=== PATIENT | male | born 1950 | race African-American/Black ===

== ENCOUNTER → 2017-10-29 | Outpatient (CLI) | payer BC ==
--- NOTE | 2017-10-29 10:44 | RAD ---
MR#: [id number] Date of Study: 10/29/2017 Ordering Physician: ROSALINDA FERNANDEZ, Referring Physician: Vicente MORE: Jennifer Sheffield RDMS RVT APPROVED REPORT Patient Location: OUT-PATIENT Indications Grayscale images of the abdominal aorta demonstrate mild diffuse atherosclerotic plaque. Spectral wav eforms and color Doppler do not reveal any significant obstruction to flow. Grayscale images do not d emonstrate any evidence of aneurysm or dissection. Overall the caliber of the abdominal aorta is kelsey sly within normal limits. Risk Factors PAD Duplex Results A/PTransverseLongitudinal Proximal Aorta 2.3cm Mid Aorta 1.7cm Distal Aorta 1.6cm Doppler VelocityWaveform Proximal Aorta 73.0 cm/secTriphasic Aorta Mid. 68.0 cm/secTriphasic Distal Aorta 78.0 cm/secTriphasic Critical Notification Critical Value: No <Conclusion> No evidence of AAA. Signed by : Rosalinda Fernandez, Electronically Approved : 10/29/2017 10:43:28
--- NOTE | 2017-10-29 11:06 | RAD ---
MR#: [id number] Date of Study: 10/29/2017 Ordering Physician: ROSALINDA FERNANDEZ, Referring Physician: ROSALINDA FERNANDEZ, Tech: Jennifer Sheffield RDMS RVT APPROVED REPORT Patient Location: OUT-PATIENT Indications PAD Grayscale images of the right lower extremity arterial vessels reveal mild diffuse atherosclerotic pl aque. The SFA is occluded. The proximal graft anastomosis appears widely patent without any significa nt turbulent flow. The distal graft anastomosis is also widely patent. Spectral waveforms in the common femoral and bypass graft R biphasic in nature. There is three-vessel runoff below the knee with slightly diminished flows in the peroneal and anterior tibial artery sugg estive of moderate diffuse disease. No significant high-grade flow-limiting stenosis is identified. On the left there are mostly biphasic waveforms above the knee. Spectral waveforms demonstrate mild d iffuse catheters carotid plaque in the SFA and below-knee vessels. Suspect approximately 50% stenosis involving the left SFA with a peak systolic velocity of 155 cm/s. Again there is three-vessel runoff below the knee with moderate to severely diminished flow in a monophasic wave pattern in the anterio r tibial artery suggestive of some near occlusion. The posterior tibial and peroneal vessels have mon ophasic waveforms although they appear to be patent. VELOCITY AND DOPPLER WAVEFORM ANALYSIS RIGHT cm/secWaveformSeverity LEFT cm/secWaveform Severity pCFA 98.0BiphasicpCFA 90.0Biphasic Prof Fem Art. 47.0BiphasicProf Fem Art. 84.0Biphasic Fem Art Prox. 31.0BiphasicFem Art Prox. 126.0Biphasic Fem Art Mid. 0.0OccludedFem Art Mid. 155.0Biphasic Fem Art Dist. 0.0OccludedFem Art Dist. 67.0Biphasic Pop Art(Fossa) 72.0BiphasicPop Art(AK) 47.0Biphasic FELTMAKER AND WEIGHER Prox. 60.0BiphasicPTA Prox. 42.0Biphasic Per Art Mid. 44.0BiphasicPer Art Mid. 51.0Biphasic CHRISTIAN Prox. 37.0BiphasicATA Prox. 26.0Biphasic DPA 75BiphasicDPA 38Biphasic BYPASS GRAFT ANALYSIS RIGHT cm/secWaveform SeverityLEFT cm/secWaveformSeverity Proximal 104BiphasicProximal Mid 79.0BiphasicMid Distal 87.0BiphasicDistal Critical Notification Critical Value: No <Conclusion> 1. Patent RSFA bypass graft. 2. 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 Signed by : Rosalinda Fernandez, Electronically Approved : 10/29/2017 11:05:47
== END | disposition home or self-care (01) ==
LOC: US 08:46
PROVIDERS: ATTEND Internal Medicine Cardiovascular Disease
DX: I73.9 Peripheral vascular disease, unspecified (principal)
CPT/HCPCS: 76770; 93925

== ENCOUNTER 2018-09-13 14:50 | Emergency (ER) | payer BC ==
[~2018-09-13] VITALS: Ht 191.8 cm; Wt 106.1 kg
[2018-09-13] MEDS ORDERED: CLINDAMYCIN HCL 150 MG CAPSULE PO ONE (15:45)
[2018-09-13] MEDS ORDERED: DEXAMETHASONE 4 MG TABLET PO ONE (15:45)
--- NOTE | 2018-09-13 17:03 | RAD ---
Left lower extremity venous ultrasound, 09/13/2018 : History: Left leg swelling Duplex evaluation including grayscale, color flow and spectral Doppler analysis was performed. The femoral and popliteal veins show no filling defects to suggest DVT. The visualized calf veins are unremarkable. IMPRESSION: There is no sonographic evidence of deep vein thrombosis in the left lower extremity Electronically signed by: Khari Dao MD (09/13/2018 5:00 PM) [facility]
[2018-09-13] MEDS ORDERED: PRED20TA PO (17:08)
[2018-09-13] MEDS ORDERED: CLIN300C8 PO (17:08)
--- NOTE | 2018-09-13 17:08 | PHYS DOC ---
Past History Past Medical History: CAD, High Cholesterol, Hypertension Additional Past Medical Histor: PAD Past Surgical History: Other Additional Past Surgical Histo: Dental implants, right leg vascular surgery, cardiac stents Smoking: Cigarettes, Less than 1pk/day Alcohol Use: None Drug Use: None Adult General Chief Complaint Chief Complaint: LOWER EXT PAIN HPI HPI 68-year-old male presents with report of leg swelling to left leg which started yesterday. Patient reports has noticed he developed a "rash" tube his bilateral arms. Patient was seen by his family physician who thought it was secondary to allergen exposure. Patient was prescribed Zyrtec at that time with interval improvement of symptoms. Patient reports now similar rash has spread to his legs. Denies any fever or chills. Denies known sick contacts. Review of Systems Review of Systems Constitutional: Denies fever or chills [] Eyes: Denies change in visual acuity, redness, or eye pain [] HENT: Denies nasal congestion or sore throat [] Respiratory: Denies cough or shortness of breath [] Cardiovascular: Denies chest pain, pleuritic pain, or palpitations GI: Denies abdominal pain, nausea, vomiting, or diarrhea [] : Denies dysuria or hematuria [] Musculoskeletal: Denies back pain or joint pain; reports swelling of left lower leg Integument: Reports pruritic rash and skin lesions [] Neurologic: Denies headache, focal weakness or sensory changes [] Complete systems were reviewed and found to be within normal limits, except as documented in this note. Current Medications Current Medications Current Medications Medications (Trade) Dose Ordered Sig/Sonam Start Time Stop Time Status Last Admin Dose Admin Clindamycin HCl (Cleocin) 300 mg 1X ONCE 09/13/18 15:45 09/13/18 15:46 DC 09/13/18 15:51 300 MG Dexamethasone (Decadron) 10 mg 1X ONCE 09/13/18 15:45 09/13/18 15:46 DC 09/13/18 15:51 10 MG Allergies Allergies Allergies Uncoded Allergies Type Severity Reaction Last Updated Verified contrast dye Allergy Unknown 09/13/18 Physical Exam Physical Exam Constitutional: Well developed, well nourished, no acute distress, non-toxic appearance. [] HENT: Normocephalic, atraumatic Eyes: Conjunctiva normal, no discharge. [] Neck: Normal range of motion, no tenderness, supple Cardiovascular: Heart rate regular rhythm, no murmur [] Lungs & Thorax: Bilateral breath sounds clear to auscultation []] Skin: Warm, dry, no erythema, pruritic rash noted to bilateral lower extremities, small excoriations noted, no significant warmth appreciated, some surrounding erythema concerning for cellulitis Extremities: Mild left lower leg tenderness, ROM intact, 1+ edema to left lower leg. [] Neurologic: Alert and oriented X 3, normal motor function, normal sensory function, no focal deficits noted. [] Psychologic: Affect normal, judgement normal, mood normal. [] Current Patient Data Vital Signs Vital Signs Date Time Temp Pulse Resp B/P (MAP) Pulse Ox O2 Delivery O2 Flow Rate FiO2 09/13/18 14:50 98.1 68 18 98 Room Air EKG EKG [] Radiology/Procedures Radiology/Procedures PROCEDURE: VENOUS LOWER EXTREMITY LEFT Left lower extremity venous ultrasound, 09/13/2018 : History: Left leg swelling Duplex evaluation including grayscale, color flow and spectral Doppler analysis was performed. The femoral and popliteal veins show no filling defects to suggest DVT. The visualized calf veins are unremarkable. IMPRESSION: There is no sonographic evidence of deep vein thrombosis in the left lower extremity Electronically signed by: Khari Dao MD (09/13/2018 5:00 PM) [facility] Course & Med Decision Making Course & Med Decision Making Pertinent Imaging studies reviewed. (See chart for details) Patient presents with report of left lower leg swelling with associated rash. Patient has had rash previously on bilateral upper extremities which was treated with steroids. Patient with bilateral lower extremity rash and some erythema. Concern for cellulitis. Empiric antibiotics given. Denies any fever or chills. Denies known trauma. Venous Doppler negative for acute DVT. Symptomatic treatment provided with interval improvement of symptoms. Patient stable for discharge with outpatient follow-up with PCP. Discussed findings and plan with patient, who acknowledges understanding and agreement. Dragon Disclaimer Dragon Disclaimer This electronic medical record was generated, in whole or in part, using a voice recognition dictation system. Departure Departure: Impression: Primary Impression: Cellulitis Additional Impression: Pruritic dermatitis Disposition: 01 HOME, SELF-CARE Condition: STABLE (f) Referrals: RYAN LITTLE MD (PCP) Patient Instructions: Cellulitis, Ipti-wz-Efbt, Rash, Nyxz-ra-Ymkd Scripts Prednisone (PREDNISONE) 20 Mg Tablet 2 TAB PO DAILY for Pruritic Rash, #8 TAB Start this medication tomorrow, 09/13/18 Prov: WICHO SIMMONS DO 09/13/18 Clindamycin Hcl (CLINDAMYCIN HCL) 300 Mg Capsule 1 CAP PO TID for infection, #7 CAP Prov: WICHO SIMMONS DO 09/13/18 Problem Qualifiers Primary Impression: Cellulitis Site of cellulitis: extremity Site of cellulitis of extremity: lower extremity Laterality: left Qualified Codes: L03.116 - Cellulitis of left lower limb WICHO SIMMONS DO September 13, 2018 17:08
[2018-09-13 17:30] VITALS: BP 137/83
== END 2018-09-13 17:30 | disposition home or self-care (01) ==
LOC: ER 14:50
DX: L03.116 Cellulitis of left lower limb (principal); L30.8 Other specified dermatitis
CPT/HCPCS: 93971; 99284; J8540

== ENCOUNTER → 2018-11-11 | Outpatient (CLI) | payer BC ==
[~2018-11-11] MED LIST: CLIN300C8 PO; PRED20TA PO
--- NOTE | 2018-11-11 12:53 | RAD ---
MR#: [id number] Date of Study: 11/11/2018 Ordering Physician: ROSALINDA OTERO, Referring Physician: ROSALINDA OTERO, Tech: Cinthia Savage RVT, [facility] APPROVED REPORT Patient Location: OUT-PATIENT Indications PAD Grayscale images of the right lower ext arterial vessels reveals moderate diffuse plaque. The right S FA is subtotally occluded at the distal segment. The right femoropopliteal bypass graft appears to be patent. There are mostly biphasic waveforms throughout the right lower extremity. There is three-ves armida runoff below the knee. Similarly grayscale images of the left lower extremity arterial vessels demonstrate mild to moderate diffuse plaque. No significant high-grade focal stenosis is 5. There is three-vessel runoff below the knee. There are biphasic waveforms throughout the arterial course. Risk Factors History of Lower Extremity PAD: Hypertension Smoking Surgery/Intervention Bypass Graft 1 : VELOCITY AND DOPPLER WAVEFORM ANALYSIS RIGHT cm/secWaveformSeverity LEFT cm/secWaveform Severity pCFA 150.4BiphasicpCFA 141.0Biphasic Prof Fem Art. 60.2BiphasicProf Fem Art. 69.4Biphasic Fem Art Prox. 42.6BiphasicFem Art Prox. 115.7Biphasic Fem Art Mid. 37.0BiphasicFem Art Mid. 112.4Biphasic Fem Art Dist. Fem Art Dist. 57.8Biphasic Pop Art(AK) 73.3BiphasicPop Art(AK) 45.7Biphasic Pop Art(BK) Pop Art(BK) CELLULAR BIOLOGIST Prox. 61.1BiphasicPTA Prox. 73.5Biphasic CELLULAR BIOLOGIST Dist. 79.1BiphasicPTA Dist. 83.6Biphasic Per Art Mid. 108.2BiphasicPer Art Mid. 46.3Biphasic CHRISTIAN Prox. 60.7BiphasicATA Prox. 51.5Biphasic DPA 44BiphasicDPA 31Biphasic BYPASS GRAFT ANALYSIS RIGHT cm/secWaveform SeverityLEFT cm/secWaveformSeverity Proximal 74BiphasicProximal Mid 82.0BiphasicMid Distal 74.0BiphasicDistal Critical Notification Critical Value: No <Conclusion> 1. Patent femoropopliteal bypass graft on the right 2. No significant disease on the left. 3. Bilateral three-vessel runoff below the knee. Signed by : Rosalinda Otero, Electronically Approved : 11/11/2018 12:53:03
== END | disposition home or self-care (01) ==
LOC: US 10:23
PROVIDERS: ATTEND Internal Medicine Cardiovascular Disease
DX: I70.203 Unspecified atherosclerosis of native arteries of extremities, bilateral legs (principal); I10 Essential (primary) hypertension; F17.200 Nicotine dependence, unspecified, uncomplicated
CPT/HCPCS: 93925

== ENCOUNTER → 2020-01-27 | Outpatient (CLI) | payer BC, MEDICARE ==
--- NOTE | 2020-01-27 11:13 | RAD ---
EXAM: Carotid Doppler sonogram. HISTORY: Peripheral artery disease. Atherosclerosis. TECHNIQUE: Childs scale and color Doppler sonographic evaluation of the neck with spectral waveform analysis was performed and static images are submitted for review. FINDINGS: There is mild atherosclerotic plaque involving the bilateral internal carotid arteries and left external carotid artery. The peak systolic velocity within the right common carotid artery is 118 cm/sec. The peak systolic velocity within the right internal carotid artery is 88 cm/sec and the end diastolic velocity within the right internal carotid artery is 29 cm/sec. The peak systolic velocity within the left common carotid artery is 151 cm/sec. The peak systolic velocity within the left internal carotid artery is 77 cm/sec and the end diastolic velocity within the left internal carotid artery is 18 cm/sec. There is normal antegrade flow within both vertebral arteries. IMPRESSION: No Doppler evidence of greater than 50 percent stenosis involving the internal carotid arteries. PQRS Compliance Statement - Stenosis calculations for CT, MR and conventional angiography are based upon measurement of the distal ICA diameter in accordance with the NASCET methodology. Stenosis calculations for carotid ultrasound studies are derived from validated velocity criteria which are known to correlate with the NASCET methodology. Electronically signed by: Tracy Owens MD (01/27/2020 11:10 AM) [id number]
--- NOTE | 2020-01-27 12:01 | RAD ---
MR#: [id number] Date of Study: 01/27/2020 Ordering Physician: ROSALINDA FERNANDEZ, Referring Physician: ROSALINDA FERNANDEZ, Tech: Gabbi Espinoza RDMS, [facility] APPROVED REPORT Patient Location: OUT-PATIENT Indications PAD Grayscale images of bilateral lower extremity arterial vessels demonstrate mild to moderate diffuse a therosclerosis. On the right side the SFA is subtotally occluded at the level of the mid to distal s egment. There is a patent CATERPILLAR DRIVER to popliteal bypass graft. There are biphasic waveforms in the common femoral artery, popliteal artery, below-knee vessels. No significant velocity acceleration is noted . The bypass graft appears to be patent with biphasic waveforms. On the left side no significant obstruction is noted with three-vessel runoff below the knee. There are biphasic waveforms throughout. Surgery/Intervention Bypass Graft 1 : VELOCITY AND DOPPLER WAVEFORM ANALYSIS RIGHT cm/secWaveformSeverity LEFT cm/secWaveform Severity dCFA 135.0BiphasicdCFA 61.0Biphasic Prof Fem Art. 102.0BiphasicProf Fem Art. 129.0Biphasic Fem Art Prox. 45.0BiphasicFem Art Prox. 89.0Biphasic Fem Art Mid. 45.0BiphasicFem Art Mid. 105.0Biphasic Fem Art Dist. -28.0BiphasicFem Art Dist. 103.0Biphasic Pop Art(Fossa) 73.0BiphasicPop Art(AK) 41.0Biphasic [employer] WEBSPHERE PORTAL DEVELOPER Prox. 83.0PTA Prox. 71.0Biphasic [employer] WEBSPHERE PORTAL DEVELOPER Dist. 71.0PTA Dist. 46.0Biphasic Per Art Prox. Per Art Prox. Per Art Mid. 36.0BiphasicPer Art Mid. 54.0Biphasic CHRISTIAN Prox. CHRISTIAN Prox. CHRISTIAN Prox. 50.0BiphasicATA Prox. 49.0Biphasic DPA 57DPA 49Biphasic BYPASS GRAFT ANALYSIS RIGHT cm/secWaveform SeverityLEFT cm/secWaveformSeverity Prox. Anastomosis 27.0BiphasicProx. Anastomosis Proximal 88BiphasicProximal Mid 83.0BiphasicMid Distal 87.0BiphasicDistal Dist. Anastomosis 82.0BiphasicDist. Anastomosis Critical Notification Critical Value: No <Conclusion> 1. Right-sided SFA occlusion with patent right CATERPILLAR DRIVER to distal SFA bypass. 2. Bilateral three-vessel runoff with biphasic waveforms Signed by : Rosalinda Fernandez, Electronically Approved : 01/27/2020 12:01:22
--- NOTE | 2020-01-27 12:02 | RAD ---
MR#: [id number] Date of Study: 01/27/2020 Ordering Physician: ROSALINDA FERNANDEZ, Referring Physician: ROSALINDA FERNANDEZ, Tech: Gabbi Espinoza RDMS, [facility] APPROVED REPORT Patient Location: OUT-PATIENT Exam Type: Ankle to Brachial Index Indications PAD Normal bilateral ankle-brachial indices. Risk Factors History of PAD: Bilaterally Surgery/Intervention Bypass Graft 1 : Pressures/Indices RightABI LeftABI Brachial 122mmHgBrachial 124mmHg Ankle(PT) 118mmHgAnkle(PT) 128mmHg Critical Notification Critical Value: No <Conclusion> 1. Normal bilateral ankle-brachial indices. Signed by : Rosalinda Fernandez, Electronically Approved : 01/27/2020 12:01:56
== END | disposition home or self-care (01) ==
LOC: US 08:02
PROVIDERS: ATTEND Internal Medicine Cardiovascular Disease
DX: I65.23 Occlusion and stenosis of bilateral carotid arteries (principal); I70.201 Unspecified atherosclerosis of native arteries of extremities, right leg
CPT/HCPCS: 93880; 93922; 93925

== ENCOUNTER → 2020-02-24 | Outpatient (CLI) | payer BC ==
--- NOTE | 2020-02-24 17:39 | CARD ---
MR#: [id number] Date of Study: 02/24/2020 Ordering Physician: ROSALINDA FERNANDEZ, Referring Physician: ROSALINDA FERNANDEZ, Tech: Shirin Velez USHA APPROVED REPORT EXAM: Two-dimensional and M-mode echocardiogram with Doppler and color Doppler. Other Information Quality : Fair INDICATION Cardiac Disease: CAD RISK FACTORS Smoking 2D DIMENSIONS Left Atrium(2D)2.8 (1.6-4.0cm)IVSd1.2 (0.7-1.1cm) Aortic Root(2D)3.2 (2.0-3.7cm)LVDd4.3 (3.9-5.9cm) LVOT Diameter2.0 (1.8-2.4cm)PWd1.2 (0.7-1.1cm) LVDs3.2 (2.5-4.0cm)FS (%) 25.0 % SV41.1 ml Aortic Valve AoV Peak Simone.121.6cm/sAoV VTI19.9cm AO Peak GR.5.9mmHgAO Mean GR.4mmHg BHARGAVI (VTI)2.55cm2 Mitral Valve MV E Wwnomhxf32.3cm/sMV DECEL XMDD372st MV A Pkrbitje51.4cm/sE/A Ratio0.9 Tricuspid Valve TR P. Czpypdlt049ly/sRAP LTTNIFLI6yfJm TR Peak Gr.35pkWoZRCE53wxPw LEFT VENTRICLE The left ventricle is normal size. There is mild concentric left ventricular hypertrophy. Left ventri isabel systolic function is normal. The Ejection Fraction is 50-55%. There is normal LV segmental wall m otion. Transmitral Doppler flow pattern is Grade I-abnormal relaxation pattern. RIGHT VENTRICLE The right ventricle is normal size. The right ventricular systolic function is normal. ATRIA The left atrium size is normal. The right atrium size is normal. The interatrial septum is intact wit h no evidence for an atrial septal defect or patent foramen ovale as noted on 2-D or Doppler imaging. AORTIC VALVE The aortic valve is mildly thickened but opens well. Doppler and Color Flow revealed no significant a ortic regurgitation. There is no significant aortic valvular stenosis. MITRAL VALVE The mitral valve is normal in structure and function. There is no evidence of mitral valve prolapse. There is no mitral valve stenosis. Doppler and Color-flow revealed trace mitral regurgitation. TRICUSPID VALVE The tricuspid valve is normal in structure and function. Doppler and Color Flow revealed trace tricus pid regurgitation. The PA pressure was estimated at 31 mmHg. There is no tricuspid valve stenosis. PULMONIC VALVE The pulmonic valve is not well visualized. Doppler and Color Flow revealed trace pulmonic valvular re gurgitation. There is no pulmonic valvular stenosis. GREAT VESSELS The aortic root is normal in size. The ascending aorta is mildly dilated at 3.6 cm. The IVC is normal in size and collapses >50% with inspiration. PERICARDIAL EFFUSION There is no evidence of significant pericardial effusion. Critical Notification Critical Value: No <Conclusion> The left ventricle is normal size. Left ventricle systolic function is normal. The Ejection Fraction is 50-55%. There is mild concentric left ventricular hypertrophy. Doppler and Color Flow revealed no significant aortic regurgitation. There is no significant aortic valvular stenosis. Doppler and Color-flow revealed trace mitral regurgitation. Doppler and Color Flow revealed trace tricuspid regurgitation. The PA pressure was estimated at 31 mmHg. The ascending aorta is mildly dilated at 3.6 cm. Signed by : Manish Cowart MD Electronically Approved : 02/24/2020 17:39:01
== END ==
LOC: ECHO 07:42
PROVIDERS: ATTEND Internal Medicine Cardiovascular Disease
DX: I25.10 Atherosclerotic heart disease of native coronary artery without angina pectoris (principal)
CPT/HCPCS: 93306

== ENCOUNTER → 2020-12-22 | Outpatient (CLI) | payer BC ==
[~2020-12-22] MED LIST changes: -CLIN300C8 PO; +CLIN300C9 PO
--- NOTE | 2020-12-22 16:51 | RAD ---
EXAM: RENAL/RETROPERITONAL ULTRASOUND. HISTORY: Chronic renal disease. COMPARISON: None. FINDINGS: Ultrasound of the kidneys, bladder and retroperitoneum was performed. The right kidney measures 9.8 cm. Cortical thickness and echogenicity are preserved. There is no hydr onephrosis. The left kidney measures 10.6 cm. Cortical thickness and echogenicity are preserved. There is no hydr onephrosis. A benign cyst is suspected in the interpolar region measuring 1.6 x 1.4 cm. The bladder is decompressed but demonstrates wall thickening. There was an 11 mL post void residual v olume. The abdominal aorta and inferior vena cava are grossly patent and normal in caliber. IMPRESSION: 1. A 1.6 cm mass in the left renal interpolar region is likely a cyst. Sonographic follow-up is ze christian in 6 months if long-term stability is not already known. 2. Bladder wall thickening. Correlate with urinalysis. 11 mL post void residual volume. Electronically signed by: Leidy Aleman MD (12/22/2020 4:49 PM) [id number]
== END ==
LOC: US 10:46
PROVIDERS: ATTEND Family Medicine
DX: N18.31 Chronic kidney disease, stage 3a (principal); N28.89 Other specified disorders of kidney and ureter; N32.89 Other specified disorders of bladder; R39.198 Other difficulties with micturition
CPT/HCPCS: 76770

== ENCOUNTER → 2021-01-25 | Outpatient (CLI) | payer BC ==
--- NOTE | 2021-01-25 15:42 | CARD ---
MR#: [id number] Date of Study: 01/25/2021 Ordering Physician: ROSALINDA OTERO, Referring Physician: ROSALINDA OTERO, Tech: Lilliam Ojeda, [facility] APPROVED REPORT EXAM: Two-dimensional and M-mode echocardiogram with Doppler and color Doppler. Other Information Quality : AverageHR: 76bpm Technically limited study due to body habitus. INDICATION Cardiac Disease: CAD RISK FACTORS Hypertension Hyperlipidemia Smoking 2D DIMENSIONS Left Atrium(2D)3.3 (1.6-4.0cm)IVSd1.2 (0.7-1.1cm) Aortic Root(2D)3.6 (2.0-3.7cm)LVDd4.9 (3.9-5.9cm) LVOT Diameter2.1 (1.8-2.4cm)PWd1.2 (0.7-1.1cm) LVDs3.2 (2.5-4.0cm)FS (%) 35.0 % SV72.8 mlLVEF(%)64.1 (>50%) Aortic Valve AoV Peak Simone.143.6cm/sAoV VTI29.2cm AO Peak GR.8.2mmHgLVOT Peak Simone.120.4cm/s LVOT VTI 21.74cmAO Mean GR.4mmHg BHARGAVI (VMAX)2.91fa3TVT (VTI)2.58cm2 Mitral Valve MV E Tfpemict83.9cm/sMV E Peak Gr.4mmHg MV DECEL IIAT948kmME A Yidytoyk94.6cm/s MV E Mean Gr.1mmHgE/A Ratio0.7 Pulmonary Valve PV Peak Xfbebuti96.0cm/sPV Peak Grad.4mmHg Tricuspid Valve TR P. Hdifljzk505qk/sRAP YSBGGCID1ezNd TR Peak Gr.48hwNrVQBE76rgZd Pulmonary Vein S1 Dtkwvhqn94.2cm/sD2 Hbfngjwi06.3cm/s LEFT VENTRICLE The left ventricle is normal size. There is mild concentric left ventricular hypertrophy. The left ve ntricular systolic function is normal and the ejection fraction is within normal range. The Ejection Fraction is 50-55%. There is normal LV segmental wall motion. Transmitral Doppler flow pattern is Gra de I-abnormal relaxation pattern. RIGHT VENTRICLE The right ventricle is borderline dilated. The right ventricle is borderline hypertrophied. The right ventricular systolic function is normal. ATRIA The left atrium size is normal. The right atrium size is normal. The interatrial septum is intact wit h no evidence for an atrial septal defect or patent foramen ovale as noted on 2-D or Doppler imaging. AORTIC VALVE The aortic valve is not well visualized. Doppler and Color Flow revealed no significant aortic regurg itation. There is no significant aortic valvular stenosis. Calculated aortic valve area is 3.0 cm2 wi th maximum pressure gradient of 8 mmHg and mean pressure gradient of 4 mmHg. MITRAL VALVE The mitral valve is normal in structure and function. There is no evidence of mitral valve prolapse. There is no mitral valve stenosis. Doppler and Color-flow revealed trace mitral regurgitation. TRICUSPID VALVE The tricuspid valve is normal in structure and function. Doppler and Color Flow revealed trace tricus pid regurgitation with an estimated PAP of 30 mmHg. There is no tricuspid valve stenosis. PULMONIC VALVE The pulmonic valve is not well visualized. Doppler and Color Flow revealed trace pulmonic valvular re gurgitation. There is no pulmonic valvular stenosis. GREAT VESSELS The aortic root is normal in size. The IVC is normal in size and collapses >50% with inspiration. PERICARDIAL EFFUSION There is no evidence of significant pericardial effusion. Critical Notification Critical Value: No <Conclusion> The left ventricular systolic function is normal and the ejection fraction is within normal range. Th e Ejection Fraction is 50-55%. There is normal LV segmental wall motion. Signed by : Rosalinda Otero, Electronically Approved : 01/25/2021 15:41:23
--- NOTE | 2021-01-25 15:44 | RAD ---
MR#: [id number] Date of Study: 01/25/2021 Ordering Physician: ROSALINDA OTERO, Referring Physician: ROSALINDA OTERO, Tech: Cinthia Chand RVT, [facility] APPROVED REPORT Patient Location: OUT-PATIENT Laterality:Bilateral Indications Grayscale images of the bilateral carotid vessels demonstrate mild to moderate diffuse atherosclerosi s. On the right side there is likely overall less than 50% stenosis involving the proximal internal greene tid artery. No significant stenosis on the left side based on velocity criteria, except at the level of the external carotid artery which appears to be less than 50% based on velocities. The bilateral vertebral velocities are antegrade. Bilateral ICA to CCA ratios are within normal limits. Risk Factors Hypertension: PAD Smoking Doppler Spectral Velocity Analysis Right Left pCCA 122/31 cm/spCCA 101/27 cm/s mCCA 131/32 cm/smCCA 115/30 cm/s dCCA 110/28 cm/sdCCA 119/33 cm/s Bulb Bulb 94/14 cm/s ECA 113/14 cm/sECA 133/22 cm/s pICA 132/17 cm/spICA 68/21 cm/s [place] 109/28 cm/smICA 93/33 cm/s dICA 100/36 cm/sdICA 87/36 cm/s Vert. 42/13 cm/sVert. 30/11 cm/s ICA/CCA 1.01ICA/CCA 0.92 Critical Notification Critical Value: No <Conclusion> 1. No significant carotid occlusive disease bilaterally Signed by : Rosalinda Otero, Electronically Approved : 01/25/2021 15:43:42
--- NOTE | 2021-01-25 16:06 | RAD ---
MR#: [id number] Date of Study: 01/25/2021 Ordering Physician: ROSALNIDA OTERO, Referring Physician: ROSALINDA OTERO, Tech: Cinthia Chand RVT,[facility]AN APPROVED REPORT Patient Location: OUT-PATIENT Indications PAD Grayscale images the bilateral lower extremity arterial vessels demonstrates mild to moderate diffuse atherosclerotic plaque. On the right side the distal SFA is occluded. There is a patent bypass graft from the proximal SFA t o the popliteal junction. The bypass graft is patent. There is three vessel run-off below the knee. Risk Factors Hypertension Cardiac Disease Smoking Surgery/Intervention Bypass Graft 1 : Site : RT SHOE PULLER-SFA D VELOCITY AND DOPPLER WAVEFORM ANALYSIS RIGHT cm/secWaveformSeverity LEFT cm/secWaveform Severity pCFA 177.7TriphasicpCFA 133.9Biphasic Prof Fem Art. 72.0BiphasicProf Fem Art. 58.0Biphasic Fem Art Prox. 69.4BiphasicFem Art Prox. 122.8Triphasic Fem Art Mid. 63.4BiphasicFem Art Mid. 126.5Triphasic Fem Art Dist. OccludedFem Art Dist. 74.7Triphasic Pop Art(Fossa) 52.5TriphasicPop Art(AK) 48.4Triphasic MANAGEMENT LIAISON Prox. 75.0TriphasicPTA Prox. 87.2Triphasic MANAGEMENT LIAISON Dist. 87.5TriphasicPTA Dist. 80.2Triphasic Per Art Prox. 61.8Per Art Prox. 47.5Biphasic Per Art Dist.Per Art Dist. CHRISTIAN Prox. 68.6BiphasicATA Prox. 64.5Triphasic DPA 69BiphasicDPA 45Triphasic BYPASS GRAFT ANALYSIS RIGHT cm/secWaveform SeverityLEFT cm/secWaveformSeverity Prox. Anastomosis 118.0TriphasicProx. Anastomosis Proximal 91TriphasicProximal Mid 83.0TriphasicMid Distal 91.0TriphasicDistal Critical Notification Critical Value: No <Conclusion> 1. Occluded right SFA with patent right femoropopliteal bypass graft and three-vessel runoff bilromina koroma Signed by : Rosalinda Otero, Electronically Approved : 01/25/2021 16:06:02
--- NOTE | 2021-01-25 16:07 | RAD ---
MR#: [id number] Date of Study: 01/25/2021 Ordering Physician: ROSALINDA OTERO, Referring Physician: ROSALINDA OTERO, Tech: Cinthia Chand RVT, [facility] APPROVED REPORT Patient Location: OUT-PATIENT Exam Type: Ankle to Brachial Index Indications PAD Risk Factors Hypertension Smoking Surgery/Intervention Bypass Graft 1 : Pressures/Indices RightABI LeftABI Brachial 120mmHgBrachial 130mmHg Ankle(PT) 150mmHgAnkle(PT) 142mmHg Ankle(DP) 200twFu8.2Ankle(DP) 456jvRx2.1 Critical Notification Critical Value: No <Conclusion> 1. Normal bilateral NAS Signed by : Rosalinda Otero, Electronically Approved : 01/25/2021 16:06:23
== END ==
LOC: ECHO 12:38
PROVIDERS: ATTEND Internal Medicine Cardiovascular Disease
DX: I77.1 Stricture of artery (principal); I51.7 Cardiomegaly; I25.10 Atherosclerotic heart disease of native coronary artery without angina pectoris; I77.9 Disorder of arteries and arterioles, unspecified; I73.9 Peripheral vascular disease, unspecified
CPT/HCPCS: 93306; 93880; 93923; 93925